=== PATIENT | male | born 1970 | race African-American/Black ===

== ENCOUNTER 2017-08-24 16:22 | Observation (INO) | payer MEDICARE, OTHER ==
--- NOTE | 2017-08-24 16:50 | PDOC ---
Rapid Medical Evaluation Time Seen by Provider: 08/24/17 16:48 Medical Evaluation: Allergies Allergy/AdvReac Type Severity Reaction Status Date / Time No Known Allergies Allergy Verified 03/07/13 14:57 I have performed a brief in-person evaluation of this patient. The patient presents with a chief complaint of: headache x [address] Vaughan sent for head CT Pertinent physical exam findings: none I have ordered the following: CT head The patient will proceed to the ED for further evaluation. Discharge Disposition - Diagnosis Headache - Referrals - Patient Instructions - Post Discharge Activity
[2017-08-24 16:55] VITALS: BMI 31.5
--- NOTE | 2017-08-24 17:10 | PDOC ---
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 He denies any trauma but states that he has had headaches on the side of his head that are different in quality from his usual headaches (left frontal since his stroke in 1999) that typically go away after a day or so. His headaches now are slightly posterior to his typical headaches and are persistent. denies any new focal weakness or paresthesias but states that he is overall weakness. JHis residual right sided deficits including paresthesias of his face, facial muscle weakness, upper extremity weakness,a nd lower extremity weakness. He was sent in by Dr. Rod for an MRI and further lab workup. 08/24/17 20:23 Past History - Past Medical History Allergies/Adverse Reactions: Allergies Allergy/AdvReac Type Severity Reaction Status Date / Time No Known Allergies Allergy Verified 08/24/17 19:28 Home Medications: Ambulatory Orders Amlodipine Besylate [Norvasc -] 5 mg PO DAILY 08/24/17 CVA: Yes (hemorrhagic stroke x 2 right side,1992,1999.) COPD: No - Surgical History Abdominal Surgery: No Appendectomy: No Cardiac Surgery: No Cholecystectomy: No - Suicide/Smoking/Psychosocial Hx Smoking Status: No Smoking History: Never smoked Have you smoked in the past 12 months: Yes Number of Cigarettes Smoked Daily: 1 Information on smoking cessation initiated: No 'Breaking Loose' booklet given: 03/07/13 Hx Alcohol Use: No Drug/Substance Use Hx: No Substance Use Type: None Hx Substance Use Treatment: No Review of Systems - Review of Systems Constitutional: No: Chills, Diaphoresis, Fever HEENTM: No: Blurred Vision, Tearing Respiratory: No: Cough, Orthopnea, Shortness of Breath Cardiac (ROS): No: Edema, Irregular Heart Rate, Lightheadedness, Palpitations, Syncope, Chest Tightness ABD/GI: No: Constipated, Diarrhea, Nausea, Vomiting : No: Burning, Dysuria, Discharge Musculoskeletal: Yes: Muscle Weakness Integumentary: No: Bruising, Erythema, Flushing, Lesions Neurological: Yes: Headache, Paresthesia, Pre-Existing Deficit. No: Numbness Endocrine: No: Excessive Sweating, Intolerance to Cold Hematologic/Lymphatic: No: Anemia, Blood Clots *Physical Exam - Vital Signs Last Vital Signs Temp Pulse Resp BP Pulse Ox 99.4 F 75 18 141/81 99 08/24/17 16:52 08/24/17 16:52 08/24/17 16:52 08/24/17 16:52 08/24/17 16:52 - Physical Exam General Appearance: Yes: Nourished, Appropriately Dressed. No: Apparent Distress HEENT: positive: EOMI, TAMMY. negative: Normal ENT Inspection (right sided facial flattening) Neck: positive: Trachea midline, Normal Thyroid, Supple. negative: Tender, Rigid Respiratory/Chest: positive: Lungs Clear, Normal Breath Sounds. negative: Chest Tender, Respiratory Distress, Accessory Muscle Use Cardiovascular: positive: Regular Rhythm, Regular Rate Gastrointestinal/Abdominal: positive: Normal Bowel Sounds, Flat, Soft. negative : Tender Lymphatic: negative: Adenopathy, Tenderness Musculoskeletal: positive: Normal Inspection. negative: CVA Tenderness Extremity: positive: Normal Capillary Refill, Normal Inspection, Normal Range of Motion. negative: Tender Integumentary: positive: Normal Color, Dry, Warm Neurologic: positive: Fully Oriented, Alert, Normal Mood/Affect, Normal Response , Numbness, Sensory Deficit. negative: carbon paper interleafer II-XII NML intact, Motor Strength 5/ 5 (Right sided deficits that are prexisting. Right sided facial muscle weakness with decreased sensation to sharp objects and slight decrease to dull touch. Right upper extremity weakness with slightly sonctracted arm. 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 3/5 strength in right lower extremitiy. Left side has no deficits. ) ED Treatment Course - LABORATORY CBC & Chemistry Diagram: 08/24/17 17:18 08/24/17 17:18 Medical Decision Making - Medical Decision Making 47 year old male with tow previous hemorrhagic strokes presenting with new diffuse weakness and headaches. Patient sent by Dr. Alcala. MRI demonstrating some hyperdensities within an old left sided cavernous hemangioma. We discussed the patient with Dr. Cheema and he believes that this does not represent a new bleed and there was no acute intervention to be performed. Patient signed out to [facility] admitting for [facility] and sent upstairs. 08/24/17 20:33 *DC/Admit/Observation/Transfer Diagnosis at time of Disposition: Headache Qualifiers: Headache type: other vascular headache Qualified Code(s): G44.1 - Vascular headache, not elsewhere classified - Discharge Dispostion Condition at time of disposition: Stable Decision to Admit order: Yes - Referrals - Patient Instructions - Post Discharge Activity
[2017-08-24 17:33] LABS: BASO % 0.5 % (0-2.0); EOS % 1.3 % (0-4.5); HEMATOCRIT 44.1 % (35.4-49); HEMOGLOBIN 14.9 GM/dL (11.7-16.9); LYMPH % 35.4 % (8-40); MCH 28.4 pg (25.7-33.7); MCHC 33.8 g/dl (32.0-35.9); MEAN CELL VOLUME 84.1 fl (80-96); MEAN PLT VOLUME 8.9 fl (7.5-11.1); MONO % 8.4 % (3.8-10.2); NEUT % 54.4 % (42.8-82.8); PLATELET COUNT 186 K/MM3 (134-434); RBC 5.24 M/mm3 (4.00-5.60); RDW 13.4 % (11.9-15.9); WHITE BLOOD COUNT 5.6 K/mm3 (4.0-10.0)
[2017-08-24 18:03] LABS: ANION GAP 9 (8-16); BILIRUBIN,TOTAL 0.3 mg/dL (0.2-1.0); BLOOD UREA NITROGEN 13 mg/dL (7-18); CALCIUM 8.7 mg/dL (8.5-10.1); CHLORIDE 109 mmol/L (98-107); CO2 24 mmol/L (21-32); GLUCOSE,RANDOM 131 mg/dL (74-106); SGPT/ALT 29 U/L (12-78); SODIUM 142 mmol/L (136-145); TOT PROT 7.4 g/dl (6.4-8.2)
[2017-08-24 18:11] LABS: ALK PHOS 37 U/L (45-117); INR 1.11 (0.82-1.09); PROTHROMBIN TIME (PATIENT) 12.5 SEC (9.7-13.0)
[2017-08-24 18:14] LABS: ACTIVATED PTT 34.8 SECONDS (25.2-36.5)
[2017-08-24 18:22] LABS: POTASSIUM 4.3 mmol/L (3.5-5.1); SGOT/AST 23 U/L (15-37)
--- NOTE | 2017-08-24 19:19 | PDOC ---
Attending Attestation - HPI HPI: 08/24/17 19:20 The patient is a 47 year old male with history of hemorrhagic stroke x2 with mild residual R sided weakness who presents to the ED complaining of approximately 3 days of left sided headache with generalized weakness. No fever or chills. No chest pain or shortness of breath. No numbness or tingling. No new focal weakness. Sent by his PCP for evaluation. PCP: Dr. Cha - Physicial Exam PE: 08/24/17 19:27 Constitutional: Awake, alert, oriented. No acute distress. Head: Normocephalic. Atraumatic Eyes: PERRL. EOMI. Conjunctivae are not pale. ENT: Mucous membranes are moist and intact. Posterior pharynx without exudates or erythema. Uvula midline. Neck: Supple. Full ROM. No lymphadenopathy. Cardiovascular: Regular rate. Regular rhythm. S1, S2 regular. Distal pulses are 2+ and symmetric. Pulmonary/Chest: No evidence of respiratory distress. Clear to auscultation bilaterally No wheezing, rales or rhonchi. Abdominal: Soft and non-distended. There is no tenderness. No rebound, guarding or rigidity. No organomegaly. No palpable masses. Good bowel sounds. Back: No CVA tenderness. Musculoskeletal: No edema. No cyanosis. No clubbing. Full range of motion in all extremities. Nocalf tenderness. Radial/pedal pulses are intact and 2+ bilaterally Skin: Skin is warm and dry. No petechiae. No purpura. Neurological: Alert and oriented to person, place, and time. Normal speech. Sensation intact throughout. +R sided facial droop, mild R sided weakness, unchanged from baseline. +R finger nose finger. +L finger nose finger intact. Bilateral heel-bryan intact. Psychiatric: Good eye contact. Normal interaction, affect and behavior. - Medical Decision Making 08/24/17 19:[address] Thomas Cheema of neurosurgery at [phone]. Awaiting callback. Documentation prepared by Nat Mendoza, acting as medical cost consultant for Rosmery Day DO. <Nat Mendoza - Last Filed: 08/24/17 19:27> - Resident Resident Name: Payal Madera - ED Attending Attestation I have performed the following: I have examined & evaluated the patient, The case was reviewed & discussed with the resident, I agree w/resident's findings & plan, Exceptions are as noted - Critical Care Time Total Critical Care Time: 30 Critical Care Statement: The care of this patient involved high complexity decision making to prevent further life threatening deterioration of the patient 's condition and/or to evaluate & treat vital organ system(s) failure or risk of failure. - Medical Decision Making 08/24/17 19:19 I, Dr. Rosmery Day, DO, attest that this document has been prepared under my direction and personally reviewed by me in its entirety. I further attest, that it accurately reflects all work, treatment, procedures and medical decision -making performed by me. 08/25/17 01:50 47yo male sent from Dr. Cha for eval of off balance with hx of hemorrhagic cva -residual R sided weakness and R facial droop from prior hemorrhagic cva -will obtain stat head ct, MRI brain, labs -will need admission for neuro eval 08/25/17 01:53 MRI brain shows bleeding in the L hemangioma call placed to Dr. Deni Cha updated on results call placed to [facility] to admit the patient under dr. cha 08/25/17 01:54 case discussed with Galina from [facility] resident discussed the case with Dr. Cheema pt will be admitted <Rosmery Day - Last Filed: 08/25/17 01:54> Heart Score/ECG Review - ECG Intrepretation Comment:: 08/24/17 19:51 sinus at 77, 1st degree av block, t wave inversions III, no acute st changes <Rosmery Day - Last Filed: 08/25/17 01:54>
--- NOTE | 2017-08-24 20:37 | PDOC ---
NIH Stroke Scale - Last Known Well Date/Time & Onset Date Last Known Well: 08/21/17 - Initial Evaluation Level of consciousness: Alert Ask patient the month and their age: Answers both correctly Ask patient to open & close eyes; make fist and let go: Obeys both correctly Best gaze (horizontal eye movement): Normal Visual field testing: No visual field loss Facial paresis (Show teeth/raise eyebrows/close eyes tight): Normal symmetrical movement Motor Function: Left Arm: Normal Motor Function: Right Arm: No movement (Pre-existing right sided deficit from old stroke) Motor Function: Left Leg: Normal (extends leg 30 degrees for 5 seconds without drift) Motor Function: Right Leg: Normal (extends leg 30 degrees for 5 seconds without drift) Limb Ataxia: No ataxia Sensory(Use pinprick test arms,legs,trunk,face/side to side): Mild to moderate decrease in sensation Best language (Describe picture, name items, read sentences): No Aphasia Dysarthria (read several words): Normal articulation Extinction and Inattention: No abnormality - Total Score NIH Stroke Scale Score: 5
--- NOTE | 2017-08-24 20:39 | PDOC ---
tPA Exclusion Checklist 0-3hr - Time Elapsed Date last known well: 08/22/17 Time last known well: 14:00 Elaspsed time: 2 Day(s) and 6 Hour(s) and 38 Minutes - Thrombolytic Therapy Candidate Is the patient eligible for Thrombolytic Therapy?: No - Ineligibility reason(s) Reasons No tPA given: Outside of window - delayed arrival (Also, previous stroke was hemorrhagic with known cavernous hemangioma and concern for itnralesional bleed)
[2017-08-24] MEDS ORDERED: SODIUM CHLORIDE 1,000 ML IV SCH (22:15)
--- NOTE | 2017-08-24 22:50 | HP ---
CHIEF COMPLAINT: headache PCP: Alexus HISTORY OF PRESENT ILLNESS: This is a 47 year old male with a past medical history of hemorrhagic CVA "20years ago" with residual right sided tala and HTN who presented to the ED for headache x 3 days with associated "foggy" sensation, increased sleepiness and unsteady gait. ER course was notable for: (1) CT head with left basal ganglia cavernous hematoma (2) MRI with known previous hemangioma with possible new vs chronic bleeding (3) Recent Travel: [place] PAST MEDICAL HISTORY: hemorrhagic CVA x 2 with residual R tala, HTN PAST SURGICAL HISTORY: R ankle ORIF Social History: Smoking: pt denies Alcohol: weekends 3-4 drinks Drugs: pt denies Family History: mother alive and well father with HTN 2 brother with DM 1 brother and sister alive and well 3 children alive and well Allergies No Known Allergies Allergy (Verified 08/24/17 19:28) HOME MEDICATIONS: 3 Medication Instructions Recorded Amlodipine Besylate [Norvasc -] 5 mg PO DAILY 08/24/17 REVIEW OF SYSTEMS CONSTITUTIONAL: Absent: fever, chills, diaphoresis, generalized weakness, malaise, loss of appetite, weight change HEENT: Absent: rhinorrhea, nasal congestion, throat pain, throat swelling, difficulty swallowing, mouth swelling, ear pain, eye pain, visual changes CARDIOVASCULAR: Absent: chest pain, syncope, palpitations, irregular heart rate, lightheadedness , peripheral edema RESPIRATORY: Absent: cough, shortness of breath, dyspnea with exertion, orthopnea, wheezing, stridor, hemoptysis GASTROINTESTINAL: Absent: abdominal pain, abdominal distension, nausea, vomiting, diarrhea, constipation, melena, hematochezia GENITOURINARY: Absent: dysuria, frequency, urgency, hesitancy, hematuria, flank pain, genital pain MUSCULOSKELETAL: Absent: myalgia, arthralgia, joint swelling, back pain, neck pain SKIN: Absent: rash, itching, pallor HEMATOLOGIC/IMMUNOLOGIC: Absent: easy bleeding, easy bruising, lymphadenopathy, frequent infections ENDOCRINE: Absent: unexplained weight gain, unexplained weight loss, heat intolerance, cold intolerance NEUROLOGIC: Present: headache, focal weakness or paresthesias, unsteady gait Absent: dizziness, seizure, mental status changes, bladder or bowel incontinence PSYCHIATRIC: Absent: anxiety, depression, suicidal or homicidal ideation, hallucinations. PHYSICAL EXAMINATION Vital Signs - 24 hr 3 08/24/17 08/24/17 08/24/17 16:52 19:32 19:37 Temperature 99.4 F Pulse Rate 75 Pulse Rate [ 67 Apical] Respiratory 18 16 Rate Blood Pressure 141/81 Blood Pressure 129/82 [Left Arm] O2 Sat by Pulse 99 99 99 Oximetry (%) GENERAL: Awake, alert, and fully oriented, in no acute distress. HEAD: Normal with no signs of trauma. EYES: Pupils equal, round and reactive to light, extraocular movements intact, sclera anicteric, conjunctiva clear. No lid lag. EARS, NOSE, THROAT: Ears normal, nares patent, oropharynx clear without exudates. Moist mucous membranes. NECK: Normal range of motion, supple without lymphadenopathy, JVD, or masses. LUNGS: Breath sounds equal, clear to auscultation bilaterally. No wheezes, and no crackles. No accessory muscle use. HEART: Regular rate and rhythm, normal S1 and S2 without murmur, rub or gallop. ABDOMEN: Soft, nontender, not distended, normoactive bowel sounds, no guarding, no rebound, no masses. No hepatomegaly or splenomegaly. MUSCULOSKELETAL: Normal range of motion at all joints. No bony deformities or tenderness. No CVA tenderness. UPPER EXTREMITIES: 2+ pulses, warm, well-perfused. No cyanosis. No clubbing. No peripheral edema. LOWER EXTREMITIES: 2+ pulses, warm, well-perfused. No calf tenderness. No peripheral edema. Right sided hemiparesis noted, pt states same as always NEUROLOGICAL: Normal speech. Very mild left facial droop PSYCHIATRIC: Cooperative. Good eye contact. Appropriate mood and affect. SKIN: Warm, dry, normal turgor, no rashes or lesions noted, normal capillary refill. Laboratory Results - last 24 hr 3 08/24/17 08/24/17 08/24/17 17:10 17:18 17:18 WBC RBC Hgb Hct MCV MCH MCHC RDW Plt Count MPV Absolute Neuts (auto) Neutrophils % Lymphocytes % Monocytes % Eosinophils % Basophils % Nucleated RBC % PT with INR 12.50 INR 1.11 PTT (Actin FS) 34.8 Sodium 142 Potassium 4.3 Chloride 109 H Carbon Dioxide 24 Anion Gap 9 BUN 13 Creatinine 1.0 Creat Clearance w eGFR > 60 Random Glucose 131 H Calcium 8.7 Magnesium 2.0 Total Bilirubin 0.3 AST 23 D ALT 29 D Alkaline Phosphatase 37 L Creatine Kinase 368 H Creatine Kinase Index 0.3 CK-MB (CK-2) 1.29 Troponin I < 0.02 D Total Protein 7.4 Albumin 4.0 TSH 0.55 Free T4 0.92 Blood Type Antibody Screen 3 08/24/17 08/24/17 17:18 17:18 WBC 5.6 RBC 5.24 Hgb 14.9 Hct 44.1 D MCV 84.1 MCH 28.4 MCHC 33.8 RDW 13.4 Plt Count 186 D MPV 8.9 Absolute Neuts (auto) 3.0 Neutrophils % 54.4 D Lymphocytes % 35.4 D Monocytes % 8.4 Eosinophils % 1.3 D Basophils % 0.5 D Nucleated RBC % 0 PT with INR INR PTT (Actin FS) Sodium Potassium Chloride Carbon Dioxide Anion Gap BUN Creatinine Creat Clearance w eGFR Random Glucose Calcium Magnesium Total Bilirubin AST ALT Alkaline Phosphatase Creatine Kinase Creatine Kinase Index CK-MB (CK-2) Troponin I Total Protein Albumin TSH Free T4 Blood Type A POSITIVE Antibody Screen Negative ECG Normal sinus rhythm nonspecific T wave abnormality vent rate 77, QTC 414 TWI lead 3, T wave slightly flattened V6 Radiology Reports CT head Impression: Left basal ganglia cavernous hemangioma as noted above. Reported by: Floyd Lee MD 08/24/171911 MRI Brain w/o contrast IMPRESSION: In comparison to a 2015 MRI exam note is again made of an approximately 2 x 1.5 cm left basal ganglia cavernous hemangioma. There is no perilesional edema. Interval development of a small T1 hyperintense signal focus is seen within this cavernous hemangioma suggestive of blood which is probably subacute or chronic. Correlate with close follow-up MRI. No infarct is seen. Reported By: Floyd Lee MD 08/24/171923 ASSESSMENT/PLAN: 47yM with PMH hemorrhagic CVA x 2 with residual R tala, HTN presented to the ED with headache x 3 days, sensation of fogginess in his head, and change in his gait. Hemangioma with possible subacute bleeding - neurosurgery consulted by ED, will see pt in am - monitor for change in mental status - may need interval repeat MRI tomorrow, defer to neurosurg - consider neurology consult HTN - on amlodipine at home, held as BP is in 120s in setting of possible ICH DVT PPX - heparin contraindicated in ICH FEN - tolerating po - BMP in am - low sodium diet as tolerated Dispo: pt currently requires further observation. Visit type - Emergency Visit Emergency Visit: Yes ED Registration Date: 08/24/17 Care time: The patient presented to the Emergency Department on the above date and was hospitalized for further evaluation of their emergent condition. - New Patient This patient is new to me today: Yes Date on this admission: 08/24/17 - Critical Care Critical Care patient: No Hospitalist Screening - Colonoscopy Questionnaire Colonoscopy Questionnaire: Colonoscopy Questionnaire - Patient: 50 - 75 years old and never had a screening colonoscopy: No History of colon or rectal polyps, or CA: No History of IBD, Crohn's disease or UC: No History of abdominal radiation therapy as a child: No - Relative: 1 with colon or rectal CA, or polyps at age 60 or younger: No Colon or rectal CA diagnosed at age 45 or younger: No Multiple relatives with colon or rectal CA: No - Outcome: Screening Result: Negative Screen
[2017-08-24] MEDS ORDERED: PT OWN MED DRAWER 7, Y5N ONE (22:56)
[2017-08-25 06:27] LABS: BASO % 0.7 % (0-2.0); EOS % 1.5 % (0-4.5); HEMATOCRIT 41.7 % (35.4-49); HEMOGLOBIN 14.3 GM/dL (11.7-16.9); LYMPH % 44.7 % (8-40); MCH 28.6 pg (25.7-33.7); MCHC 34.2 g/dl (32.0-35.9); MEAN CELL VOLUME 83.6 fl (80-96); MEAN PLT VOLUME 8.8 fl (7.5-11.1); MONO % 7.7 % (3.8-10.2); NEUT % 45.4 % (42.8-82.8); PLATELET COUNT 176 K/MM3 (134-434); RBC 4.99 M/mm3 (4.00-5.60); RDW 13.7 % (11.9-15.9); WHITE BLOOD COUNT 5.3 K/mm3 (4.0-10.0)
[2017-08-25 07:05] LABS: ANION GAP 7 (8-16); BLOOD UREA NITROGEN 15 mg/dL (7-18); CALCIUM 8.7 mg/dL (8.5-10.1); CHLORIDE 109 mmol/L (98-107); CO2 26 mmol/L (21-32); CREATININE 1.1 mg/dL (0.7-1.3); GLUCOSE,RANDOM 100 mg/dL (74-106); MAGNESIUM 2.1 mg/dL (1.8-2.4); PHOSPHOROUS 3.9 mg/dL (2.5-4.9); POTASSIUM 4.2 mmol/L (3.5-5.1); SODIUM 142 mmol/L (136-145); TRIGLYCERIDES 189 mg/dL (35-160)
[2017-08-25 07:06] LABS: CHOLESTEROL 148 mg/dL (50-200); HDL CHOLESTEROL 32 mg/dL (40-60)
--- NOTE | 2017-08-25 08:14 | PN ---
Progress Note (short form) - Note Progress Note: NEUROSURGERY CONSULT DICTATED Chart reviewed Pt examined MRI/CT reviewed H/O hemorrhagic stroke x2 (1996 and 1999) with mild residual R sided weakness complaining of approximately 3 days of left sided headache with generalized weakness. Occurred after he did heavier workout. No fever or chills. No chest pain or shortness of breath. No numbness or tingling. No new focal weakness. PE: AF, VSS General- unremarkable; R hand/wrist in splint CN- intact; Motor- R hand and foot 2-3; proximal strength 4+; Sensation- intact LT Head CT- L posterior putamen hyperdensity with no significant mass effect MRI- stable size L posterior putamen cavernous angioma; small focus of intralesional hemorrhage L putamen cavernous angioma with recurrent hemorrhage BP control and avoid streneous activities Trans-sylvian microsurgical resection possible but would likely leave with significant deficits given dominant hemisphere, deep Sylvian location and proximity to posterior limb of internal capsule Could consider Gamma knife stereotactic radiosurgery to control size and possibly reduce future risks of bleeding discussed All questions answered
--- NOTE | 2017-08-25 08:52 | CONS ---
DATE OF CONSULTATION: DATE OF DICTATION: 08/25/2017 REQUESTING PHYSICIAN: Dr. Madera DIRECTOR OF PHILANTHROPY: Thomas Gamble MD, neurosurgery CHIEF COMPLAINT: Left-sided headache with history of hemorrhagic stroke. HISTORY OF PRESENT ILLNESS: The patient is a 47-year-old right-handed male who previously sustained 2 strokes in 1996 and 1999. He was left with right-sided hemiparesis. He is ambulatory but has residual right hand and foot weakness predominantly. About since past Monday he has been experiencing increasing left-sided headache with generalized sensation of weakness. He worked doing heavier workout earlier in the week. He has no nausea, vomiting, or seizure activity. He was sent in by his primary care physician to the emergency room for evaluation. PAST MEDICAL HISTORY: Significant for cavernous angioma and hypertension. CURRENT MEDICATIONS: Norvasc. ALLERGIES: There are no known drug allergies. FAMILY HISTORY: Noncontributory. SOCIAL HISTORY: He drinks alcohol socially and does not smoke. He does not use cocaine. REVIEW OF SYSTEMS: Otherwise negative for major constitutional, head and neck, cardiovascular, pulmonary, gastrointestinal, genitourinary, endocrinological, neurological, psychological problems except for the above. PHYSICAL EXAMINATION: Vital Signs: Temperature is 97.7. Blood pressure is 122/70 with pulse rate 77. Oxygen saturation is 98% on room air. HEENT: Examination shows him to be normocephalic, atraumatic, anicteric. Neck: Supple, with no lymphadenopathy, no carotid bruits. Coronary: Examination demonstrated regular rhythm. Lungs: Clear to auscultation bilaterally. Abdomen: Benign. He is slightly obese. Extremities: Show no signs of DVT. His right wrist is in a splint. Neurologic: He is awake and alert, oriented x4. Cranial nerve examination is intact II-XII except for slight tongue deviation to his right. Motor examination shows 5/5 strength on the left side and 4+/5 to the right proximal upper and lower extremities. Distal right upper and lower extremities are 2-3/5. Sensory examination intact to light touch. Deep tendon reflexes are 2+ throughout. He has upgoing toes on the right side. Gait is not tested for safety reasons. LABORATORY: Examination shows a white blood cell count of 5.3. Hemoglobin is 14.3, and platelet count is 176,000. INR is 1.11 and PTT is 34.8. BUN and creatinine are 15 and 1.1, respectively. Sodium is 142. Total LDL is 102 and triglycerides 189. Cholesterol is 148. HDL is 32. CT scan of the head demonstrated left posterior putamen 1.5 x 2-cm hyperdensity. There are no significant interval changes compared to a prior CT scan from 11 years ago. MRI of the brain demonstrated similar left posterior putaminal cavernous angioma with a possible small intralesional bleed. There is no significant mass effect or shift or edema. There is no hydrocephalus. IMPRESSION: 1. 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 2. Hypertension. RECOMMENDATIONS: The patient presents with a small recurrent bleed within the left cavernous angioma. It is close proximity to the internal capsule as well as deep within the sylvian fissure, as well as being in the dominant hemisphere, makes him a poor candidate for open microsurgery. These discussions were had with him by his prior treating surgeon in the past. However, he is a possible candidate to undergo Gamma Knife stereotactic radiosurgery treatment in a lower dose range such as 13-14 Gy to minimize side effect and to have the potential of controlling the size of the lesion as well as reduce the rate of future hemorrhage. The above was discussed with the patient at bedside. He should avoid strenuous activity and heavy lifting. Blood pressure should also be controlled. All questions were answered at bedside. THOMAS GAMBLE M.D. MAYTE/[id number]
[2017-08-25] MEDS ORDERED: amLODIPine BESYLATE 5 MG TABLET (FP) PO SCH (10:00)
--- NOTE | 2017-08-25 10:41 | CONSULT ---
Admitting History and Physical - Primary Care Physician PCP: Tamika Vaughan - Admission History of Present Illness: Per EMR_ H/O hemorrhagic stroke x2 (1996 and 1999) with mild residual R sided weakness complaining of approximately 3 days of left sided headache with generalized weakness. Occurred after he did heavier workout. No fever or chills. No chest pain or shortness of breath. No numbness or tingling. No new focal weakness. History Source: Patient, Medical Record Limitations to Obtaining History: No Limitations - Smoking History Smoking history: Never smoked Have you smoked in the past 12 months: Yes Aproximately how many cigarettes per day: 1 - Alcohol/Substance Use Hx Alcohol Use: No History - Admission Reason For Visit: HEADACHE; WEAKNESS - Diagnostics CT Scan: Report Reviewed (Head CT- L posterior putamen hyperdensity with no significant mass effect) MRI: Report Reviewed (MRI- stable size L posterior putamen cavernous angioma; small focus of intralesional hemorrhage L putamen cavernous angioma with recurrent hemorrhage) - General Mental Status: Alert and Oriented, Awake and Alert, Able to Follow Commands Attention: Intact Ability to Follow Directions: Excellent Head/Neck Control: WFL - Hearing Hearing: Normal Speech Evaluation - Communication Primary Language: ESTONIAN Communication: Yes: Within Normal Limits (Able to repeat, name, fluent appropriate conversation.) Oral Expression Ability: Yes: No Impairment - Speech Production Able to Make Needs Known: Yes: WNL Intelligibility: Yes: WNL - Speech Characteristics Voice Loudness: Normal Voice Pitch: Yes: Normal Voice Phonatory-based Quality: Yes: Normal Speech Pattern: Normal Speech Clarity: < 100% Nasal Resonance: Normal Articulation: Yes: Precise Rate of Speech: Intact - Language/Auditory Comprehension Follows: Yes: Complex Commands - Language/Verbal Expression Able to Respond to Simple Queries: Yes: WNL Able to Communicate Wants and Needs: Yes: WNL Functional Communication Status: Yes: WNL - Memory/Perception alf Memory: Yes: WNL Short Term Memory: Yes: WNL - Swallow Evaluation/Bedside Assessment Current Nutritional Intake: Regular, Thin Liquids Oral Secretions: Yes: WFL Dentition: Yes: Adequate, Missing Teeth Facial Symmetry at Rest: Symmetrical Facial Symmetry on Retraction: Symmetrical Facial Movement: Controlled Against Resistance Opening: Normal Against Resistance Closing: Normal Pucker Lips: Normal Smile: Normal Lingual Movement: Deviates Right (slight.baseline) Lingual Speed of Movement: Normal Lingual Movement Strgth Against Opposition: Normal Lingual Movement Characteristics: Normal Velopharyngeal Movement: Normal Laryngeal Elevation: WFL Laryngeal Movement: Able to Palpate Rate of Intake: WFL Bolus Size: WFL Labial Seal: WFL Chewing: WFL Oral Prep Time: WFL A-P Transit: WFL Timing of Swallow: WFL Coughing/Throat Clear: No Change in Voice: No Recommendations - Speech Evaluation, Impression/Plan Impression: Speech,language,swallowing, cognition WNL. - Dysphagia Impressions/Plan Swallowing Skills: WFL Dysphagia Impressions: No Impairment *Silent aspiration: cannot be R/O at bedside - Recommendations Diet Consistency: Regular Medication Administration: Whole with water Liquids: Thin Liquids
--- NOTE | 2017-08-25 12:12 | EKG ---
Test Reason : Blood Pressure : / mmHG Vent. Rate : 077 BPM Atrial Rate : 077 BPM P-R Int : 200 ms QRS Dur : 102 ms QT Int : 366 ms P-R-T Axes : 042 015 008 degrees QTc Int : 414 ms NORMAL SINUS RHYTHM NONSPECIFIC T WAVE ABNORMALITY ABNORMAL ECG WHEN COMPARED WITH ECG OF 09-MAR-2013 09:27, QUESTIONABLE CHANGE IN QRS AXIS Confirmed by RAISA GERMAN MD ([id number]) on 08/25/2017 12:11:34 PM Referred By: Confirmed By:RAISA GERMAN MD
--- NOTE | 2017-08-25 19:33 | CONSULT ---
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 He is s/p hemorrhagic CVA's at age 26 (1996) and 29 (1999) and has had persistent right hemiparesis since that time. Known, underlying vascular malformation but never specifically treated. Radiographically describedas a "Cavernous hemangioma." Pt believes his gait may have deteriorated about 8 mos ago. Now admitted after 1 week of persistent left occipital headache "different" from his "usual headache." Pt with episodic, recurrent headaches since his youth. These are throbbing left frontal headaches with photophobia and phonophobia, relieved by sleep. CT/ MRI of brain (reviewed): 2x3 cm left basal ganglia vascular malformation with fresh bleeding. CARLOS: Neck supple. No bruits. Cor reg. Normotensive (110-120/70-80 range). NEURO: Awake, alert. MS/speech: Normal CN II-XII: Full cowan and EOM. Mild right facial droop. Normal tongue movements and gag. Motor: Moderate spastic right hemiparesis (4+/5 proximally and 4-/5 distally). Hyperreflexic on right. Right Babinski Coord: No additional FTN dystaxia Sensory: Decrease sharp sensation on the right. Gait: Moderate right circumduction. IMP: 1.Chronic left cerebral dysfunction due to recurrent hemorrhages. 2. Underlying left basal ganglia vascular formation, possible a large cavernous angioma vs small AVM. 3. Additionally, probable migraine headaches. 4. Now admitted with recurrent bleeding (intraparenchymal hemorrhage). SUGGEST: Change amlodipine to Propranolol ER 80 mg for BP control and migraine prophylaxis. Avoid all ASA containing analgesics. Update cerebral angiography. If approachable, I would favor endovascular ablation of the AVM. If not appropriate, I would agree with Dr. Cheema that Gamma knife is certainly a treatment option. Thank you very much, Yassine Aranda MD
[2017-08-26 07:32] LABS: HEMATOCRIT 42.6 % (35.4-49); HEMOGLOBIN 14.5 GM/dL (11.7-16.9); MCH 28.5 pg (25.7-33.7); MCHC 34.1 g/dl (32.0-35.9); MEAN CELL VOLUME 83.7 fl (80-96); MEAN PLT VOLUME 8.8 fl (7.5-11.1); PLATELET COUNT 172 K/MM3 (134-434); RBC 5.09 M/mm3 (4.00-5.60); RDW 13.5 % (11.9-15.9); WHITE BLOOD COUNT 5.7 K/mm3 (4.0-10.0)
--- NOTE | 2017-08-26 08:39 | PN ---
Progress Note, Physician Chief Complaint: EVENTS AND NOTES REVIEWED SENT FROM OFFICE WITH HEADACHE AND WEAKNESS - Objective Vital Signs: Vital Signs Temperature 97.7 F 08/26/17 05:44 Pulse Rate 64 08/26/17 05:44 Respiratory Rate 18 08/26/17 05:44 Blood Pressure 114/70 08/26/17 05:44 O2 Sat by Pulse Oximetry (%) 98 08/25/17 10:00 Constitutional: Yes: Mild Distress Eyes: Yes: Other HENT: Yes: WNL Neck: Yes: WNL Cardiovascular: Yes: WNL Respiratory: Yes: WNL Gastrointestinal: Yes: WNL Genitourinary: Yes: WNL Musculoskeletal: Yes: Muscle Weakness Extremities: Yes: WNL Edema: No Peripheral Pulses WNL: Yes Integumentary: Yes: WNL Wound/Incision: Yes: Clean/Dry Neurological: Yes: Facial Droop, Loss of Sensation, Numbness, Pre-Existing Deficit, Weakness ...Motor Strength: RUE, RLE (HEMIPARESIS) Psychiatric: Yes: WNL Labs: CBC, BMP 08/26/17 06:20 INR, PTT INR 1.11 (0.82-1.09) 08/24/17 17:18 Problem List - Problems (1) Hemiparesis affecting dominant side as late effect of cerebrovascular accident Code(s): I69.359 - HEMIPLGA FOLLOWING CEREBRAL INFARCTION AFFECTING UNSP SIDE (2) Hypertension Code(s): I10 - ESSENTIAL (PRIMARY) HYPERTENSION (3) CVA (cerebral vascular accident) Code(s): I63.9 - CEREBRAL INFARCTION, UNSPECIFIED (4) Cavernous hemangioma of brain Code(s): D18.02 - HEMANGIOMA OF INTRACRANIAL STRUCTURES (5) Headache Code(s): R51 - HEADACHE Qualifiers: Headache type: other vascular headache Qualified Code(s): G44.1 - Vascular headache, not elsewhere classified Assessment/Plan NEUROLOGY AND NEUROSURGERY EVL APPRECIATED CHECKING BP AGREE WITH PROPANOLOL OVER AMLODIPINE FOR BP CONTROL AND MIGRINE PROPHYLAXIS AWAITING OPTIONS FOR BLEED OF CAVERNOUS HEMANGIOMA
--- NOTE | 2017-08-26 09:40 | PN ---
Progress Note (short form) - Note Progress Note: NEUROSURGERY H/O hemorrhagic stroke x2 (1996 and 1999) with mild residual R sided weakness complaining of approximately 3 days of left sided headache with generalized weakness. Occurred after he did heavier workout on Monday. No fever or chills. No chest pain or shortness of breath. No numbness or tingling. No new focal weakness. No H/A today but feels a little foggy. PE: AF, VSS General- unremarkable; R hand/wrist in splint CN- intact; Motor- R hand and foot 2-3; R proximal UE/LE strength 4+; Sensation - intact LT Head CT- L posterior putamen hyperdensity with no significant mass effect MRI- stable size 1.5 x 2 cm L posterior putamen cavernous angioma; small focus of intralesional hemorrhage L putamen cavernous angioma with recurrent hemorrhage BP control and avoid streneous activities Trans-sylvian microsurgical resection possible but would likely leave with significant deficits given dominant hemisphere, deep Sylvian location and proximity to posterior limb of internal capsule Cavernous angioma cannot be embolized (only AVM) thus could consider lose dose 13-14 Gy Gamma knife stereotactic radiosurgery to control size and possibly reduce future risks of bleeding if desired Pros and cons of treatment approaches discussed, including observation only All questions answered
[2017-08-26 12:25] LABS: ALBUMIN 3.9 g/dl (3.4-5.0); ANION GAP 10 (8-16); BLOOD UREA NITROGEN 12 mg/dL (7-18); CALCIUM 8.8 mg/dL (8.5-10.1); CHLORIDE 106 mmol/L (98-107); CO2 25 mmol/L (21-32); GLUCOSE,RANDOM 90 mg/dL (74-106); POTASSIUM 4.1 mmol/L (3.5-5.1); SODIUM 141 mmol/L (136-145)
[2017-08-26 12:28] LABS: ALK PHOS 36 U/L (45-117); BILIRUBIN,TOTAL 0.3 mg/dL (0.2-1.0); CREATININE 1.1 mg/dL (0.7-1.3); SGOT/AST 22 U/L (15-37); SGPT/ALT 30 U/L (12-78)
--- NOTE | 2017-08-26 12:44 | PN ---
Progress Note, Physician - Objective Vital Signs: Vital Signs Temperature 97.7 F 08/26/17 05:44 Pulse Rate 64 08/26/17 05:44 Respiratory Rate 18 08/26/17 05:44 Blood Pressure 114/70 08/26/17 05:44 O2 Sat by Pulse Oximetry (%) 98 08/25/17 10:00 Cardiovascular: Yes: S1, S2 Respiratory: Yes: Regular, CTA Bilaterally Gastrointestinal: Yes: Normal Bowel Sounds, Soft Labs: CBC, BMP 08/26/17 06:20 08/26/17 06:20 INR, PTT INR 1.11 (0.82-1.09) 08/24/17 17:18 Problem List - Problems (1) Cavernous hemangioma of brain Assessment/Plan: - neurosurgery consult noted--repeat ct - monitor for change in mental status - may need interval further intervention defer to neurosurg - neurology consult noted Code(s): D18.02 - HEMANGIOMA OF INTRACRANIAL STRUCTURES (2) Hypertension Assessment/Plan: -Monitor Vital Signs Period Temp Pulse Resp BP Sys/Cervantes Pulse Ox Last 24 Hr 97.4 F-98.2 F 64-81 -18 97-127/59-79 Code(s): I10 - ESSENTIAL (PRIMARY) HYPERTENSION
[2017-08-27 10:47] VITALS: PULSE 68
--- NOTE | 2017-08-27 11:37 | PN ---
Progress Note, Physician History of Present Illness: feels better - Objective Vital Signs: Vital Signs Temperature 98.2 F 08/27/17 09:00 Pulse Rate 68 08/27/17 09:00 Respiratory Rate 20 08/27/17 09:00 Blood Pressure 118/94 08/27/17 09:00 O2 Sat by Pulse Oximetry (%) 98 08/25/17 10:00 Cardiovascular: Yes: Regular Rate and Rhythm Respiratory: Yes: Regular, CTA Bilaterally Gastrointestinal: Yes: Normal Bowel Sounds, Soft Neurological: Yes: Alert, Oriented Labs: CBC, BMP 08/26/17 06:20 08/26/17 06:20 INR, PTT INR 1.11 (0.82-1.09) 08/24/17 17:18 Problem List - Problems (1) Cavernous hemangioma of brain Assessment/Plan: - neurosurgery consult noted--repeat ct noted - monitor for change in mental status - may need interval further intervention defer to neurosurg - neurology consult noted -Await NS follow up regarding dc Code(s): D18.02 - HEMANGIOMA OF INTRACRANIAL STRUCTURES (2) Hypertension Assessment/Plan: -Monitor Vital Signs Period Temp Pulse Resp BP Sys/Cervantes Pulse Ox Last 24 Hr 97.4 F-98.2 F 64-81 18-18 97-127/59-79 Code(s): I10 - ESSENTIAL (PRIMARY) HYPERTENSION
--- NOTE | 2017-08-27 11:55 | PN ---
Progress Note (short form) - Note Progress Note: NEUROSURGERY No H/A today Feels better Sitting up in chair Tolerating diet, no N/V PE: Tmax 98.2, AF, VSS General- unremarkable; R hand/wrist in splint CN- intact; Motor- R hand and foot 2-3; R proximal UE/LE strength 4+; Sensation - intact LT Head CT- L posterior putamen hyperdensity with no significant mass effect Repeat head CT- stable L putamen lesion without change MRI- stable size 1.5 x 2 cm L posterior putamen cavernous angioma; small focus of intralesional hemorrhage L putamen cavernous angioma with recurrent hemorrhage BP control and avoid streneous activities Cavernous angioma of L posterior putamen with microhemorrhage Pros and cons of treatment approaches discussed, including observation only All questions answered
[2017-08-27 15:40] VITALS: BP 119/66; TEMP 98.9
== END 2017-08-27 15:56 | disposition home or self-care (01) ==
LOC: JER 16:22 → JERBED 17:40 → J4W 20:23
PROVIDERS: ADMIT Family Medicine; ATTEND Family Medicine
DX: D18.02 Hemangioma of intracranial structures (principal); G44.1 Vascular headache, not elsewhere classified; I10 Essential (primary) hypertension; I69.251 Hemiplegia and hemiparesis following other nontraumatic intracranial hemorrhage affecting right dominant side; G93.89 Other specified disorders of brain
CPT/HCPCS: 36415; 70450-TC; 70551-TC; 71045-TC-FY; 80048; 80053; 80061; 82550; 82553; 83036; 83721; 83735; 84100; 84439; 84443; 84484; 85025; 85027; 85610; 85730; 86850; 86900; 86901; 93005; 93010; 97116-GP; 97161-GP; 99284-25; G0378

== ENCOUNTER 2018-07-30 15:45 | Emergency (ER) | payer OTHER ==
[2018-07-30 15:51] VITALS: BP 132/96; PULSE 86; TEMP 98.4; BMI 32.3
--- NOTE | 2018-07-30 15:51 | PDOC ---
Rapid Medical Evaluation Time Seen by Provider: 07/30/18 15:48 Medical Evaluation: Allergies Allergy/AdvReac Type Severity Reaction Status Date / Time No Known Allergies Allergy Verified 07/30/18 15:48 07/30/18 15:48 I have performed a brief in-person evaluation of this patient. The patient presents with a chief complaint of: rash x1 week- Took benadryl this AM Pertinent physical exam findings: mild erythema to left inner thigh. No stridor. No SOB. I have ordered the following: nothing The patient will proceed to the ED for further evaluation. 07/30/18 15:50 Discharge Disposition - Diagnosis Rash - Referrals - Patient Instructions - Post Discharge Activity
--- NOTE | 2018-07-30 16:30 | PDOC ---
History of Present Illness - General Chief Complaint: Rash Stated Complaint: RASH Time Seen by Provider: 07/30/18 15:48 - History of Present Illness Initial Comments: 07/30/18 16:26 48 y/o M with PHM of CVA presents for eval of rash x1 week no fevers Past History - Past Medical History Allergies/Adverse Reactions: Allergies Allergy/AdvReac Type Severity Reaction Status Date / Time No Known Allergies Allergy Verified 07/30/18 15:48 Home Medications: Ambulatory Orders Amlodipine Besylate [Norvasc -] 5 mg PO DAILY 08/24/17 Permethrin 5% Topical Cream [Elimite -] 1 applic TP ONCE #1 tube 07/30/18 CVA: Yes (hemorrhagic stroke x 2 right side,1992,1999.) COPD: No HTN: Yes - Surgical History Abdominal Surgery: No Appendectomy: No Cardiac Surgery: No Cholecystectomy: No - Suicide/Smoking/Psychosocial Hx Smoking Status: No Smoking History: Never smoked Have you smoked in the past 12 months: Yes Number of Cigarettes Smoked Daily: 1 'Breaking Loose' booklet given: 03/07/13 Hx Alcohol Use: No Drug/Substance Use Hx: No Substance Use Type: None Hx Substance Use Treatment: No Review of Systems - Review of Systems Integumentary: Yes: Pruritus, Rash *Physical Exam - Vital Signs Last Vital Signs Temp Pulse Resp BP Pulse Ox 98.4 F 86 18 132/96 97 07/30/18 15:48 07/30/18 15:48 07/30/18 15:48 07/30/18 15:48 07/30/18 15:48 - Physical Exam Comments: 07/30/18 16:28 There is a macular rash about the back, groin and dorsum of the hands with intradigital involvement. Medical Decision Making - Medical Decision Making 07/30/18 16:29 will treeat for scabies derm f/u *DC/Admit/Observation/Transfer Diagnosis at time of Disposition: Rash, Scabies - Discharge Dispostion Disposition: HOME Condition at time of disposition: Stable Decision to Admit order: No - Prescriptions Prescriptions: Permethrin 5% Topical Cream [Elimite -] 1 applic TP ONCE #1 tube - Referrals Referrals: Tamika Vaughan MD [Primary Care Provider] - Daniella May MD [Staff Physician] - - Patient Instructions Printed Discharge Instructions: Scabies, DI for Scabies Additional Instructions: Please use the medication as directed and repete the process in 7 days. Follow up with dermatology in 1-2 days without fail and return to the emergency room should symptoms worsen,. - Post Discharge Activity
== END 2018-07-30 16:38 | disposition home or self-care (01) ==
LOC: JERFT 15:45
DX: B86 Scabies (principal); I10 Essential (primary) hypertension; Z86.73 Personal history of transient ischemic attack (TIA), and cerebral infarction without residual deficits
CPT/HCPCS: 99281-25

== ENCOUNTER 2018-12-09 22:31 | Emergency (ER) | payer OTHER ==
[2018-12-09 22:38] VITALS: PULSE 80; TEMP 98.6; BMI 32.5
[2018-12-09] MEDS ORDERED: ACETAMINOPHEN 1000 MG/100 ML VIAL (NON FORMULARY) IVPB ONE (23:15)
[2018-12-09] MEDS ORDERED: ACETAMINOPHEN INJECTION 100 ML IVPB ONE (23:20)
--- NOTE | 2018-12-09 23:24 | PDOC ---
Documentation entered by Jessa Reynoso SCRIBE, acting as scribe for Lyndsay Guzman MD. Lyndsay Guzman MD: This documentation has been prepared by the colleenibe, Jessa Reynoso SCRIBE, under my direction and personally reviewed by me in its entirety. I confirm that the documentation accurately reflects all work, treatment, procedures, and medical decision making performed by me. Attending Attestation - Resident Resident Name: Traci Long - ED Attending Attestation I have performed the following: I have examined & evaluated the patient, The case was reviewed & discussed with the resident, I agree w/resident's findings & plan, Exceptions are as noted - HPI HPI: 12/10/18 01:08 This 48 yo male p/w complaint of 3 weeks of persistent frontal headache. He denies any recent trauma in the past month. - Physicial Exam PE: 12/09/18 23:[address] Long's physical exam - Medical Decision Making 12/09/18 23:07 48-year-old male with a history of hypertension and hemorrhagic CVA that has left with persistent right hemiparesis HPI patient presents today because he has had persistent headache for 3 weeks that is in his left frontal area. Denies dizziness, ataxia, nausea or vomiting 12/10/18 00:14 He has chronic rt sided weakness since his initial stroke in his CAT scan of the head without contrast findings Ventricular system is midline and nondilated Sulcus pattern is normal for patient's age No change in 17 mm left lentiform nucleus slightly dense mass suspected to be vascular malformation There is mild adjacent encephalomalacia which is stable possibly due to prior bleeds There is no acute bleed No additional masses no extra-axial fluid collection or mass-effect No skull fracture or skull lesion is identified Visualized paranasal sinuses and mastoid air cells are clear impression no acute pathology 12/10/18 00:30 Patient's headache resolved with Tylenol Repeat blood pressure 121/85 12/10/18 00:35 pt states he does see his neurosurgeon and a copy if his ct scan head tonight was given to him 12/10/18 01:05 12/10/18 01:07
[2018-12-09 23:32] LABS: HEMATOCRIT 44.8 % (35.4-49); HEMOGLOBIN 15.9 GM/dL (11.7-16.9); LYMPH % 35.7 % (8-40); MCH 29.6 pg (25.7-33.7); MCHC 35.5 g/dl (32.0-35.9); MEAN CELL VOLUME 83.5 fl (80-96); NEUT % 51.3 % (42.8-82.8); PLATELET COUNT 220 K/MM3 (134-434); RBC 5.36 M/mm3 (4.00-5.60); RDW 13.7 % (11.9-15.9)
[2018-12-09 23:43] LABS: INR 1.04 (0.83-1.09); PROTHROMBIN TIME (PATIENT) 12.3 SEC (9.7-13.0)
[2018-12-09 23:46] LABS: ACTIVATED PTT 41.5 SECONDS (25.2-36.5)
[2018-12-09 23:53] LABS: ALBUMIN 4.3 g/dl (3.4-5.0); BILIRUBIN,TOTAL 0.4 mg/dL (0.2-1); BLOOD UREA NITROGEN 20.7 mg/dL (7-18); CALCIUM 8.9 mg/dL (8.5-10.1); CREATININE 1.2 mg/dL (0.55-1.3); MAGNESIUM 2.1 mg/dL (1.8-2.4); PHOSPHOROUS 4.1 mg/dL (2.5-4.9); TOT PROT 7.8 g/dl (6.4-8.2)
[2018-12-10 00:29] VITALS: BP 121/85
--- NOTE | 2018-12-10 00:38 | PDOC ---
History of Present Illness - General Chief Complaint: Blood Pressure Problem Stated Complaint: HYPERTENTION Time Seen by Provider: 12/09/18 22:39 History Source: Patient - History of Present Illness Initial Comments: 12/10/18 00:33 48 yo M PMH of HTN, CVA x 3 presents to ED with headache and poor blood pressure control. pt states symptoms began 3 weeks ago. he states he gets a headache 5/10 L sided in parietal and occipital region. non radiating. pt states headaches are usually relieved with excedrin. pt states he also noticed he has increased weakness and more fatigued while walking. pt states that the last time he felt this way was when he had a stroke a year ago. pt states he is compliant with his home bp meds but still measures his bp at home and is usually systolics 150s. pt follows up with Dr. Vaughan monthly , pt also follows with neurosurgery at [facility]. pt is on disability . Past History - Past Medical History Allergies/Adverse Reactions: Allergies Allergy/AdvReac Type Severity Reaction Status Date / Time No Known Allergies Allergy Verified 12/09/18 22:42 Home Medications: Ambulatory Orders Amlodipine Besylate [Norvasc -] 5 mg PO DAILY 12/09/18 Propranolol HCl 20 mg PO DAILY 12/09/18 CVA: Yes (hemorrhagic stroke x 2 right side,1992,1999.) COPD: No HTN: Yes - Surgical History Abdominal Surgery: No Appendectomy: No Cardiac Surgery: No Cholecystectomy: No - Psycho Social/Smoking Cessation Hx Smoking Status: No Smoking History: Never smoked Have you smoked in the past 12 months: No Number of Cigarettes Smoked Daily: 1 'Breaking Loose' booklet given: 03/07/13 Hx Alcohol Use: No Drug/Substance Use Hx: No Substance Use Type: None Hx Substance Use Treatment: No Review of Systems - Review of Systems Able to Perform ROS?: Yes Constitutional: Yes: Weakness. No: Chills, Fever Respiratory: No: Shortness of Breath Cardiac (ROS): Yes: Lightheadedness (with walking occasionally), Palpitations ABD/GI: No: Diarrhea, Nausea, Vomiting, Abdominal cramping : No: Dysuria Musculoskeletal: Yes: Muscle Weakness Neurological: Yes: Headache, Weakness, Unsteady Gait, Dizziness *Physical Exam - Vital Signs Last Vital Signs Temp Pulse Resp BP Pulse Ox 98.6 F 80 19 121/85 99 12/09/18 22:34 12/09/18 22:34 12/09/18 22:34 12/10/18 00:28 12/09/18 23:04 - Physical Exam General Appearance: Yes: Nourished, Appropriately Dressed. No: Apparent Distress HEENT: positive: EOMI, TAMMY, Normal Voice, Symmetrical, Pharynx Normal. negative: Pharyngeal Erythema Respiratory/Chest: positive: Lungs Clear, Normal Breath Sounds. negative: Accessory Muscle Use Cardiovascular: positive: Regular Rhythm, Regular Rate, S1, S2. negative: JVD Gastrointestinal/Abdominal: positive: Normal Bowel Sounds, Soft. negative: Tender, Organomegaly Extremity: positive: Normal Inspection. negative: Swelling, Calf Tenderness Neurologic: positive: registered public surveyor II-XII NML intact, Fully Oriented, Normal Mood/Affect , Motor Strength 5/5 (4/5 muscle strenth on RUE, 5/5 on LUE), Finger to Nose. negative: Facial Droop ED Treatment Course - LABORATORY CBC & Chemistry Diagram: 12/09/18 23:20 12/09/18 23:20 - ADDITIONAL ORDERS Additional order review: Laboratory Results 12/09/18 12/09/18 23:20 23:20 PT with INR 12.30 INR 1.04 PTT (Actin FS) 41.5 H Sodium 138 Potassium 4.0 Chloride 104 Carbon Dioxide 27 Anion Gap 7 L BUN 20.7 H Creatinine 1.2 Est GFR (CKD-EPI)AfAm 83.54 Est GFR (CKD-EPI)NonAf 72.08 Random Glucose 120 H Calcium 8.9 Phosphorus 4.1 Magnesium 2.1 Total Bilirubin 0.4 AST 19 ALT 29 Alkaline Phosphatase 45 Total Protein 7.8 Albumin 4.3 12/09/18 23:20 RBC 5.36 MCV 83.5 MCHC 35.5 RDW 13.7 MPV 9.0 Neutrophils % 51.3 Lymphocytes % 35.7 D Monocytes % 10.0 Eosinophils % 2.0 Basophils % 1.0 - Medications Given in the ED: ED Medications Discontinued Medications Generic Name Dose Route Start Last Admin Trade Name Freq PRN Reason Stop Dose Admin Acetaminophen 1,000 mg 12/09/18 23:15 12/09/18 23:24 Ofirmev Injection - IVPB 12/09/18 23:16 1,000 mg ONCE ONE Administration Medical Decision Making - Medical Decision Making 12/10/18 00:41 48 yo M presenting with headache and poor bp control r/o CVA htn -head ct reviewed, no acute intracranial pathology when compared to CT from 2018 Ventricular system is midline and nondilated Sulcus pattern is normal for patient's age No change in 17 mm left lentiform nucleus slightly dense mass suspected to be vascular malformation There is mild adjacent encephalomalacia which is stable possibly due to prior bleeds There is no acute bleed No additional masses no extra-axial fluid collection or mass-effect No skull fracture or skull lesion is identified Visualized paranasal sinuses and mastoid air cells are clear impression no acute pathology -CBC, CMP reviewed. -IV Tylenol, pt reports improved symptoms -rpt BP well controlled -pt should f/u with PCP and neurosurg outpt 12/10/18 00:55 Discharge - Discharge Information Problems reviewed: Yes Clinical Impression/Diagnosis: Headache, Hypertension, Chronic cerebrovascular accident (CVA) Condition: Improved Disposition: HOME - Admission No - Follow up/Referral Referrals: Tamika Vaughan MD [Staff Physician] - - Patient Discharge Instructions Patient Printed Discharge Instructions: DI for High Blood Pressure Additional Instructions: You came into the hospital for headache and problems with your blood pressure. While in the ED, you had a CT of your head showing there is no new bleed in your brain. Please follow up with your primary physician, Dr. Vaughan, this week to further manage your symptoms and better control your blood pressure. Please follow up with your neurosurgeon, to further evaluate your symptoms. Please continue to take your home medications as prescribed. Please return to the ED if your symptoms persist or worsen. - Post Discharge Activity
--- NOTE | 2018-12-10 10:01 | EKG ---
Test Reason : Blood Pressure : / mmHG Vent. Rate : 065 BPM Atrial Rate : 065 BPM P-R Int : 216 ms QRS Dur : 104 ms QT Int : 402 ms P-R-T Axes : 037 054 015 degrees QTc Int : 418 ms SINUS RHYTHM WITH 1ST DEGREE A-V BLOCK NONSPECIFIC T WAVE ABNORMALITY ABNORMAL ECG WHEN COMPARED WITH ECG OF 24-AUG-2017 17:25, NO SIGNIFICANT CHANGE WAS FOUND Confirmed by DORIE ABBOTT, DELMIS ([id number]) on 12/10/2018 10:00:46 AM Referred By: Confirmed By:DELMIS OSHEA MD
== END 2018-12-10 01:09 | disposition home or self-care (01) ==
LOC: JER 22:31
PROC: 3E033NZ Introduction of Analgesics, Hypnotics, Sedatives into Peripheral Vein, Percutaneous Approach (ICD-10-PCS; principal; 2018-12-09)
DX: I10 Essential (primary) hypertension (principal); I69.851 Hemiplegia and hemiparesis following other cerebrovascular disease affecting right dominant side
CPT/HCPCS: 36415; 70450-TC; 80053; 83735; 84100; 85025; 85610; 85730; 93005; 93010; 96374; 99283-25; J0131

== ENCOUNTER 2021-07-05 00:07 | Emergency (ER) | payer OTHER ==
[2021-07-05 00:52] VITALS: BP 126/86; PULSE 86; TEMP 98.1; BMI 31.5
== END 2021-07-05 01:55 | disposition home or self-care (01) ==
LOC: JER 00:07
DX: I10 Essential (primary) hypertension (principal)
CPT/HCPCS: 93005; 93010; 99283-25